=== PATIENT | female | born 1985 | race Two or more races ===

== ENCOUNTER 2019-10-19 16:06 | Emergency (ER) | payer OTHER ==
[~2019-10-19] VITALS: Ht 157.5 cm; Wt 65.0 kg
[2019-10-19 16:06] VITALS: BP 106/67
--- NOTE | 2019-10-19 16:59 | RAD ---
CHEST PA LATERAL History: Reason: right side ribs pain / Spl. Instructions: / History: Comparison: None. Findings: No consolidation or pleural effusion. Normal heart size. No pneumothorax. Impression: 1. No acute cardiopulmonary process. Electronically signed by: Colin Nath DO (10/19/2019 4:57 PM) [facility] [place]
--- NOTE | 2019-10-19 17:29 | PHYS DOC ---
General Adult EDM: Chief Complaint: RIB PAIN HPI: HPI: Patient is a 34-year-old female presented to ER today for evaluation of right side rib pain, denies any chest pain, denies any trouble breathing, denies any cough or fever. The pain is sharp in nature hurt worse with palpation or taking a deep breath. Patient says she just tried a new bra on couple days ago. Afterwards she was having pain when she woke up the next day. Patient is on control medication with an implant, denies smoking, denies any history of blood clot disorder. Patient denies any recent travel. Denies any recent operation. Patient has no history of coronary disease, no family history of coronary disease. Review of Systems: Review of Systems: Constitutional: Denies fever or chills Eyes: Denies change in visual acuity HENT: Denies nasal congestion or sore throat Respiratory: Denies cough or shortness of breath Cardiovascular: Denies chest pain or edema . Positive for right-sided rib pain GI: Denies abdominal pain, nausea, vomiting, bloody stools or diarrhea : Denies dysuria Musculoskeletal: Denies back pain or joint pain Integument: Denies rash Neurologic: Denies headache, focal weakness or sensory changes Endocrine: Denies polyuria or polydipsia Lymphatic: Denies swollen glands Psychiatric: Denies depression or anxiety Heart Score: Risk Factors: Risk Factors: DM, Current or recent (<one month) smoker, HTN, HLP, family history of CAD, obesity. Risk Scores: Score 0 - 3: 2.5% MACE over next 6 weeks - Discharge Home Score 4 - 6: 20.3% MACE over next 6 weeks - Admit for Clinical Observation Score 7 - 10: 72.7% MACE over next 6 weeks - Early Invasive Strategies Physical Exam: PE: Constitutional: Well developed, well nourished, no acute distress, non-toxic appearance. [] HENT: Normocephalic, atraumatic, bilateral external ears normal, oropharynx moist, no oral exudates, nose normal. [] Eyes: PERRLA, EOMI, conjunctiva normal, no discharge. [] Neck: Normal range of motion, no tenderness, supple, no stridor. [] Cardiovascular:Heart rate regular rhythm, no murmur [] Lungs & Thorax: Bilateral breath sounds clear to auscultation . Right lateral lower rib tender to palpation, chest pain reproducible to palpation, no crepitus., There is no rash on the right side of her chest where she hurting Abdomen: Bowel sounds normal, soft, no tenderness, no masses, no pulsatile masses. [] Skin: Warm, dry, no erythema, no rash. [] Back: No tenderness, no CVA tenderness. [] Extremities: No tenderness, no cyanosis, no clubbing, ROM intact, no edema. [] Neurologic: Alert and oriented X 3, normal motor function, normal sensory function, no focal deficits noted. [] Psychologic: Affect normal, judgement normal, mood normal. [] EKG: EKG: [] Radiology/Procedures: Radiology/Procedures: [][address] [address] IMAGING REPORT Signed PATIENT: BINA ABRAHAM ACCOUNT: [id number] : 1985 LOCATION: ER AGE: 34 SEX: F EXAM STATUS: REG ER ORD. PHYSICIAN: ARIANNA PIKE DO REASON: right side ribs pain PROCEDURE: CHEST PA & LATERAL CHEST PA LATERAL History: Reason: right side ribs pain / Spl. Instructions: / History: Comparison: None. Findings: No consolidation or pleural effusion. Normal heart size. No pneumothorax. Impression: 1. No acute cardiopulmonary process. Electronically signed by: Colin Wood DO (10/19/2019 4:57 PM) [facility] DICTATED AND SIGNED BY: COLIN WOOD DO DATE: 10/19/19 1908 CC: PCPJORGE A; ARIANNA PIKE DO ~ Course & Med Decision Making: Course & Med Decision Making Pertinent Labs and Imaging studies reviewed. (See chart for details) [] Dragon Disclaimer: Dragon Disclaimer: This electronic medical record was generated, in whole or in part, using a voice recognition dictation system. Departure Departure: Impression: Primary Impression: Acute chest wall pain Disposition: 01 HOME/RESIDENCE PRIOR TO ADM Condition: STABLE Referrals: PCPJORGE A (PCP) follow up with your doctor next week Patient Instructions: Chest Wall Pain Additional Instructions: Thank you for visiting our Emergency Department. We appreciate you trusting us with your care. If any additional problems come up don't hesitate to return to visit us. Please follow up with your primary care provider so they can plan add itional care if needed and know about the problem that you had. If symptoms worsen come back to the Emergency Department. Any concerning symptoms that start such as chest pain, shortness of air, weakness or numbness on one side of the body, running high fevers or any other concerning symptoms return to the ER. Justification of Admission: Justification of Admission: Justification of Admission Dx: N/A ARIANNA PIKE DO Oct 19, 2019 17:29
== END 2019-10-19 17:42 | disposition home or self-care (01) ==
LOC: ER 16:06
DX: R07.81 Pleurodynia (principal)
CPT/HCPCS: 71046; 99283

== ENCOUNTER 2021-06-16 21:17 | Emergency (ER) | payer OTHER ==
[~2021-06-16] VITALS: Ht 144.8 cm; Wt 46.0 kg
--- NOTE | 2021-06-16 21:34 | PHYS DOC ---
Past History Past Medical History: Anxiety, Seizure Past Surgical History: No Surgical History Alcohol Use: None Adult General HPI HPI Patient is a 35-year-old female who presents to emergency department with abdominal pain, low back pain and some blood in her urine over the last day. States that the pain is about 7 out of 10, sharp in nature with some radiation towards her groin. Denies recent travel, traumas, illnesses, fevers, chest pain, shortness of breath, nausea, vomiting, diarrhea. Denies any blood in the stool. Does state they were trying to get . Does endorse some dysuria and urinary frequency. Denies vaginal discharge, pain or history of STIs. Review of Systems Review of Systems Review of systems otherwise unremarkable except noted in HPI Allergies Allergies Allergies Coded Allergies Type Severity Reaction Last Updated Verified No Known Drug Allergies 10/19/19 No Physical Exam Physical Exam Constitutional: Well developed, well nourished, no acute distress, non-toxic appearance. [] HENT: Normocephalic, oropharynx moist, no oral exudates, nose normal. [] Eyes: conjunctiva normal, no discharge. [] Neck: Normal range of motion, no tenderness, supple, no stridor. [] Cardiovascular:Heart rate regular rhythm, no murmur [] Lungs & Thorax: No respiratory distress Abdomen: soft, no tenderness, no masses, no pulsatile masses. [] Skin: Warm, dry, no erythema, no rash. [] Back: No tenderness, no CVA tenderness. [] Extremities: No tenderness, no cyanosis, no clubbing, ROM intact, no edema. [] Neurologic: Alert and oriented X 3, no focal deficits noted. [] Psychologic: Affect normal, judgement normal, mood normal. [] EKG EKG [] Radiology/Procedures Radiology/Procedures [] Heart Score C/O Chest Pain: No Risk Factors: Risk Factors: DM, Current or recent (<one month) smoker, HTN, HLP, family history of CAD, obesity. Risk Scores: Risk Factors: DM, Current or recent (<one month) smoker, HTN, HLP, family history of CAD, obesity. Course & Med Decision Making Course & Med Decision Making Patient is a 35-year-old female who presents with back pain, abdominal pain and hematuria Vital signs nonconcerning. Physical exam noted above. negative. Urinalysis with some blood and white cells greater than [address] notable for mild urinary bladder wall thickening correlate for cystitis. Given patient symptoms, urinalysis and findings on CT started on antibiotics for UTI/pyelonephritis given her flank pain as well. Discussed symptom management at home. Advised to follow-up with primary care as soon as possible to set up a visit. Gave return precautions to the ED. Patient grateful, verbalized understanding and agreed with plan of discharge. [] Dragon Disclaimer Dragon Disclaimer This electronic medical record was generated, in whole or in part, using a voice recognition dictation system. Departure Departure: Impression: Primary Impression: Pyelonephritis Disposition: HOME / SELF CARE / HOMELESS Condition: STABLE Referrals: MILO RUIZ (PCP) Patient Instructions: Pyelonephritis, Adult Additional Instructions: Thank you for coming into the emergency department tonight and allowing us to take care of you. Please read the attached information carefully to go over things we discussed. You can use Tylenol, ibuprofen and Benadryl as needed for symptom control at home. Please be sure to drink plenty of fluids. Please take your antibiotics as prescribed and until gone. Please call your primary care physician as soon as you can update and set up a follow-up visit. Please come back with new or concerning symptoms as discussed. Scripts Cephalexin (KEFLEX) 500 Mg Capsule 1 CAP PO TID for UTI for 7 Days, #21 CAP Prov: YOSVANY GALVAN MD 06/16/21 YOSVANY GALVAN MD Jun 16, 2021 21:34
[2021-06-16 21:44] VITALS: BP 103/70
[2021-06-16 22:18] LABS: BACTERIA,URINE 0 /HPF (0-FEW); CLARITY,URINE CLOUDY; COLOR,URINE YELLOW; GLUCOSE,URINE NEG (NEG); NITRITE,URINE NEG (NEG); RBC,URINE >40 /HPF (0-2); SQUAMOUS EPITHELIAL CELL,UR FEW /LPF; UROBILINOGEN,URINE 0.2 mg/dL (0.2 mg/dL); WBC,URINE >40 /HPF (0-4)
--- NOTE | 2021-06-16 22:59 | RAD ---
CT ABDOMEN+PELVIS WO History: Reason: LEFT FLANK AND LOWER ABDOMINAL PAIN / Spl. Instructions: / History: Technique: Noncontrast examination of the abdomen and pelvis. Coronal and sagittal reconstructions we re performed. Exposure: One or more of the following individualized dose reduction techniques were utilized for thi s examination: 1. Automated exposure control 2. Adjustment of the mA and/or kV according to patient size 3. Use of iterative reconstruction technique. Comparison: None Findings: Lower chest: No consolidation or pleural effusion. Abdomen and pelvis: The liver, spleen, adrenal glands, and pancreas are unremarkable. Contracted gall bladder. No renal calculus. No hydronephrosis. No ureteral or urinary bladder calculus. Mild urinary bladder wall thickening. Appendix not well seen. No evidence of bowel obstruction. No pathologic lymphadenopathy. No ascites. Unremarkable noncontrast appearance of the uterus and ovaries. Bones: No pathologic osseous lesions. Impression: 1. No obstructing urolithiasis. 2. Mild urinary bladder wall thickening. Correlate for cystitis. Electronically signed by: Colin Nath DO (06/16/2021 10:57 PM) [facility]
[2021-06-16] MEDS ORDERED: CEPH500C PO (23:06)
[2021-06-16] MEDS: CEPHALEXIN 250 MG CAPSULE PO ONE (23:18)
[2021-06-16] MEDS: KETOROLAC 30 MG/ML VIAL. IVP ONE (23:18)
== END 2021-06-16 23:29 | disposition home or self-care (01) ==
LOC: ER 21:17
DX: N12 Tubulo-interstitial nephritis, not specified as acute or chronic (principal); F41.9 Anxiety disorder, unspecified
CPT/HCPCS: 74176; 81001; 81025; 87086; 96374; 96375; 99284; J1885; J3010